=== PATIENT | female | born 1930 | race Caucasian/White ===

== ENCOUNTER 2018-10-16 09:52 | Emergency (ER) | payer MEDICARE, OTHER ==
[2018-10-16 10:47] LABS: #Basophils 0.1 thou/uL (0.0-0.2); #Eosinphils 0.1 thou/uL (0.0-0.7); #Lymphocytes 1.3 thou/uL (1.20-3.40); #Monocytes 0.6 thou/uL (0.11-0.59); #Neutrophils 4.4 thou/uL (1.40-6.50); %Basophils 0.8 % (0.0-1.0); %Eosinophils 1.3 % (0.0-10.0); %Lymphocytes 19.7 % (21.0-51.0); %Monocytes 9.9 % (0.0-10.0); %Neutrophils 68.3 % (42.0-75.0); Hemoglobin 14.8 g/dL (12.0-16.0); Mean Corpuscular HGB CONC 33.1 g/dL (32.0-36.0); Mean Corpuscular Hemoglobin 31.9 pg (27.0-31.0); Mean Corpuscular Volume 96.3 fL (78.0-98.0); Mean Platelet Volume 7.4 fL (7.4-10.4); Platelet Count 221 thou/uL (130-400); Red Blood Cell (RBC) Count 4.63 mill/uL (4.20-5.40); White Blood Cell (WBC) Count 6.5 thou/uL (4.8-10.8)
[2018-10-16 11:07] LABS: ALT (SGPT) 17 U/L (8-55); AST (SGOT) 24 U/L (5-34); Albumin 4.3 g/dL (3.4-4.8); Alkaline Phosphatase 73 U/L (40-150); Anion Gap 14 mmol/L (10-20); BUN (Urea Nitrogen) 13 mg/dL (9.8-20.1); Bilirubin, Total 0.5 mg/dL (0.2-1.2); CK (CPK) 140 U/L (29-168); Calc. Creatinine Clearance 0 mL/min (70-130); Calcium 9.4 mg/dL (7.8-10.44); Carbon Dioxide 27 mmol/L (23-31); Chloride 102 mmol/L (98-107); Estimated GFR-MDRD 69; Globulin 2.6 g/dL (2.4-3.5); Glucose 90 mg/dL (83-110); Potassium 4.5 mmol/L (3.5-5.1); Protein, Total 6.9 g/dL (6.0-8.3); Sodium 138 mmol/L (136-145)
[2018-10-16 11:31] LABS: Bilirubin Negative (Negative); Blood, Urine Negative (Negative); Clarity CLEAR (Clear); Glucose, Urine (Dipstick) Negative (Negative); Leukocyte Negative (Negative); Nitrite Negative (Negative); Protein, Urine (Dipstick) Negative (Neg-Trace); Specific Gravity, Urine 1.004 (1.002-1.036); Urobilinogen 0.2 mg/dL (0.2-1.0)
--- NOTE | 2018-10-16 11:43 | CT ---
NONCONTRAST CT HEAD: Date: 10-16-18 History: Worsening dizziness with onset one day ago. Comparison: 10-23-15 FINDINGS: There is decreased attenuation of the periventricular white matter which is nonspecific but likely se condary to chronic small vessel ischemic changes which have progressed from the prior study in 2016. There is no evidence of an acute cortical infarction, hemorrhage, mass effect, or midline shift. Ther e is mild cerebral volume loss. The ventricular system is normal in size, shape, and position for the degree of sulcal atrophy. Dense vascular calcifications are seen in the carotid siphons. Visualized paranasal sinuses and mastoid air cells are clear. Calvarial structures remain intact. No other interval change. IMPRESSION: 1. No acute intracranial abnormalities demonstrated. 2. Chronic small vessel ischemic changes. 3. Volume loss. POS: [facility]
== END 2018-10-16 12:23 | disposition home or self-care (01) ==
LOC: ERS 09:52
DX: R42 Dizziness and giddiness (principal); F32.9 Major depressive disorder, single episode, unspecified; I47.1 Supraventricular tachycardia; I10 Essential (primary) hypertension; Z87.891 Personal history of nicotine dependence; Z79.899 Other long term (current) drug therapy
CPT/HCPCS: 36415; 70450; 80053; 81003; 82550; 84484; 85025; 93005

== ENCOUNTER 2022-05-02 09:49 | Outpatient (CLI) | payer MEDICARE, OTHER | END 2022-05-02 09:50 | disposition home or self-care (01) | LOC: RAD 09:49 | PROVIDERS: ATTEND Internal Medicine Critical Care Medicine | DX: R06.00 Dyspnea, unspecified (principal); R91.8 Other nonspecific abnormal finding of lung field | CPT/HCPCS: 71046 ==

== ENCOUNTER 2022-05-27 12:09 | Inpatient (IN) | payer MEDICARE, OTHER ==
[2022-05-27 12:47] LABS: #Eosinphils 0.1 thou/uL (0.0-0.7); #Monocytes 0.7 thou/uL (0.11-0.59); #Neutrophils 5.5 thou/uL (1.40-6.50); %Eosinophils 1.3 % (0.0-10.0); %Lymphocytes 13.4 % (21.0-51.0); %Monocytes 9.2 % (0.0-10.0); %Neutrophils 76.1 % (42.0-75.0); Hemoglobin 12.8 g/dL (12.0-16.0); Mean Corpuscular HGB CONC 33.1 g/dL (32.0-36.0); Mean Corpuscular Hemoglobin 31.3 pg (27.0-31.0); Mean Corpuscular Volume 94.8 fL (78.0-98.0); Mean Platelet Volume 6.3 fL (7.4-10.4); Platelet Count 237 thou/uL (130-400); RBC Distribution Width 12.6 % (11.5-14.5); Red Blood Cell (RBC) Count 4.07 mill/uL (4.20-5.40); White Blood Cell (WBC) Count 7.3 thou/uL (4.8-10.8)
[2022-05-27 13:11] LABS: ALT (SGPT) 13 U/L (8-55); AST (SGOT) 19 U/L (5-34); Albumin 3.9 g/dL (3.4-4.8); Alkaline Phosphatase 58 U/L (40-110); Anion Gap 15 mmol/L (10-20); BUN (Urea Nitrogen) 28 mg/dL (9.8-20.1); Bilirubin, Total 0.7 mg/dL (0.2-1.2); Calc. Creatinine Clearance 0 mL/min (70-130); Carbon Dioxide 25 mmol/L (23-31); Chloride 96 mmol/L (98-107); Estimated GFR 37; Globulin 2.5 g/dL (2.4-3.5); Glucose 91 mg/dL (83-110); Potassium 4.5 mmol/L (3.5-5.1); Protein, Total 6.4 g/dL (5.8-8.1); Sodium 131 mmol/L (136-145)
[2022-05-27 13:48] LABS: SARS-CoV-2 NAA Rapid Test DETECTED (NotDetected)
[2022-05-27 13:49] LABS: Bilirubin Negative (Negative); Blood, Urine Negative (Negative); Clarity Clear (Clear); Glucose, Urine (Dipstick) >=1000 mg/dL (Negative); Ketone, Urine Negative (Negative); Leukocyte Negative Leu/uL (Negative); Nitrite Negative (Negative); Protein, Urine (Dipstick) 10 mg/dL (Neg-Trace); Urobilinogen Normal mg/dL (Less than 2); pH, Urine 6.5 (5.0-9.0)
[2022-05-27] MEDS ORDERED: Amlodipine 5 MG TAB ONE (14:28)
[2022-05-27] MEDS ORDERED: Aspirin Chewable 81 MG TAB ONE (14:28)
[2022-05-27] MEDS ORDERED: Furosemide 40 MG/4 ML VIAL ONE (14:28)
[2022-05-27] MEDS ORDERED: Nitroglycerin 2% Ointment 1 INCH/1 GM Packet ONE (14:28)
[2022-05-27] MEDS ORDERED: Ondansetron ODT 4 MG TAB PO PRN (15:12)
[2022-05-27] MEDS ORDERED: Acetaminophen 325 MG TAB PO PRN ×2 (15:12→15:17)
[2022-05-27] MEDS ORDERED: Ondansetron PF 4 MG/2 ML Vial IVP PRN (15:12)
[2022-05-27] MEDS ORDERED: hydrALAZINE 20 MG/ML VIAL SLOW IVP PRN (15:16)
[2022-05-27] MEDS ORDERED: Benzonatate 100 MG CAP PO PRN (15:17)
[2022-05-27] MEDS ORDERED: Acetaminophen 650 MG Suppository PR PRN (15:17)
[2022-05-27] MEDS ORDERED: Albuterol Sulfate 2.5 mg/3 ml Neb NEB PRN (15:19)
[2022-05-27] MEDS ORDERED: Electrolyte Replacement Protocol FS PRN (15:30)
[2022-05-27] MEDS: Mometasone 200 MCG/Formoterol 5 MCG 120 PUFF INHALER INH SCH (18:18)
[2022-05-27] MEDS: (RENAL) NIRMATRELVIR 150 MG/RITONAVIR 100 MG TABLET PO SCH (20:09)
[2022-05-27] MEDS: Latanoprost 0.005% Ophth Soln 2.5 ml Bottle EA EYE SCH (20:12)
[2022-05-28 05:31] LABS: Cardiac Risk 3.2 (Less than 4.5); Cholesterol 215 mg/dl (< 200 Desired); HDL Cholesterol 68 mg/dL (>60 Neg Risk); LDL Cholesterol, Calculated 131 mg/dL; Magnesium 1.8 mg/dL (1.6-2.6); Triglycerides 78 mg/dL (Less than 150)
[2022-05-28] MEDS: Mometasone 200 MCG/Formoterol 5 MCG 120 PUFF INHALER INH SCH ×2 (06:12→21:13)
[2022-05-28 07:55] LABS: Anion Gap 15 mmol/L (10-20); BUN (Urea Nitrogen) 31 mg/dL (9.8-20.1); Calc. Creatinine Clearance 21 mL/min (70-130); Calcium 8.6 mg/dL (7.8-10.44); Carbon Dioxide 26 mmol/L (23-31); Chloride 96 mmol/L (98-107); Estimated GFR 36; Glucose 78 mg/dL (83-110); Potassium 3.8 mmol/L (3.5-5.1); Sodium 133 mmol/L (136-145)
[2022-05-28] MEDS ORDERED: Magnesium 2 GM/50 ML(in water) 2 GM in Premix Bag 1 BAG IVPB SCH (08:00)
[2022-05-28] MEDS ORDERED: Enoxaparin Sodium 40 MG/0.4 ML SYRINGE SC SCH (09:00)
[2022-05-28] MEDS: Aspirin 81 mg Enteric Coated Tablet PO SCH (10:06)
[2022-05-28] MEDS: Ascorbic Acid 500 mg Chewable Tablet PO SCH (10:06)
[2022-05-28] MEDS: Zinc Sulfate 220 MG CAP PO SCH (10:07)
[2022-05-28] MEDS: Furosemide 40 MG/4 ML VIAL SLOW IVP SCH (10:07)
[2022-05-28] MEDS: Timolol 0.5% Ophth Soln 5 ml Bottle EA EYE SCH (10:08)
[2022-05-28] MEDS: Cholecalciferol (Vitamin D3) 400 UNITS TAB PO SCH (10:08)
[2022-05-28] MEDS: (RENAL) NIRMATRELVIR 150 MG/RITONAVIR 100 MG TABLET PO SCH ×2 (11:38→21:15)
[2022-05-28] MEDS: Fluticasone Propionate Nasal Spray 16 gm Bottle NASAL PRN (16:21)
[2022-05-28] MEDS: Latanoprost 0.005% Ophth Soln 2.5 ml Bottle EA EYE SCH (21:13)
[2022-05-29 05:58] LABS: ALT (SGPT) 10 U/L (8-55); AST (SGOT) 16 U/L (5-34); Albumin 3.4 g/dL (3.4-4.8); Alkaline Phosphatase 51 U/L (40-110); Anion Gap 14 mmol/L (10-20); BUN (Urea Nitrogen) 34 mg/dL (9.8-20.1); Bilirubin, Total 0.4 mg/dL (0.2-1.2); Calc. Creatinine Clearance 24 mL/min (70-130); Calcium 8.7 mg/dL (7.8-10.44); Carbon Dioxide 28 mmol/L (23-31); Chloride 95 mmol/L (98-107); Estimated GFR 41; Globulin 2.3 g/dL (2.4-3.5); Glucose 92 mg/dL (83-110); Magnesium 2.2 mg/dL (1.6-2.6); Potassium 3.5 mmol/L (3.5-5.1); Protein, Total 5.7 g/dL (5.8-8.1); Sodium 133 mmol/L (136-145)
[2022-05-29] MEDS: Mometasone 200 MCG/Formoterol 5 MCG 120 PUFF INHALER INH SCH ×2 (09:19→18:40)
[2022-05-29] MEDS: Fluticasone Propionate Nasal Spray 16 gm Bottle NASAL PRN (09:20)
[2022-05-29] MEDS: Ascorbic Acid 500 mg Chewable Tablet PO SCH (09:21)
[2022-05-29] MEDS: Enoxaparin Sodium 30 MG/0.3 ML SYRINGE SC SCH (09:22)
[2022-05-29] MEDS: Cholecalciferol (Vitamin D3) 400 UNITS TAB PO SCH (09:22)
[2022-05-29] MEDS: Zinc Sulfate 220 MG CAP PO SCH (09:22)
[2022-05-29] MEDS: Aspirin 81 mg Enteric Coated Tablet PO SCH (09:22)
[2022-05-29] MEDS: Furosemide 40 MG/4 ML VIAL SLOW IVP SCH (09:23)
[2022-05-29] MEDS: (RENAL) NIRMATRELVIR 150 MG/RITONAVIR 100 MG TABLET PO SCH ×2 (09:24→23:22)
[2022-05-29] MEDS: Timolol 0.5% Ophth Soln 5 ml Bottle EA EYE SCH (09:26)
[2022-05-29] MEDS ORDERED: Mirtazapine 15 MG TAB PO SCH (10:15)
[2022-05-29] MEDS ORDERED: Potassium Chloride 20 MEQ TAB PO SCH (13:45)
[2022-05-29 19:26] LABS: Potassium 4.3 mmol/L (3.5-5.1)
[2022-05-29] MEDS: Amlodipine 5 MG TAB PO SCH (23:21)
[2022-05-29] MEDS: Latanoprost 0.005% Ophth Soln 2.5 ml Bottle EA EYE SCH (23:22)
[2022-05-30] MEDS: Mometasone 200 MCG/Formoterol 5 MCG 120 PUFF INHALER INH SCH ×2 (06:09→17:14)
[2022-05-30] MEDS: Mirtazapine 15 MG TAB PO SCH (08:25)
[2022-05-30] MEDS: Enoxaparin Sodium 30 MG/0.3 ML SYRINGE SC SCH (08:25)
[2022-05-30] MEDS: Zinc Sulfate 220 MG CAP PO SCH (08:25)
[2022-05-30] MEDS: Ascorbic Acid 500 mg Chewable Tablet PO SCH (08:26)
[2022-05-30] MEDS: Aspirin 81 mg Enteric Coated Tablet PO SCH (08:26)
[2022-05-30] MEDS: Cholecalciferol (Vitamin D3) 400 UNITS TAB PO SCH (08:26)
[2022-05-30] MEDS: (RENAL) NIRMATRELVIR 150 MG/RITONAVIR 100 MG TABLET PO SCH ×2 (08:27→20:42)
[2022-05-30] MEDS: Furosemide 40 MG/4 ML VIAL SLOW IVP SCH (08:28)
[2022-05-30] MEDS: Dexamethasone 4 mg/ml Vial SLOW IVP SCH (09:46)
[2022-05-30] MEDS: Timolol 0.5% Ophth Soln 5 ml Bottle EA EYE SCH (09:46)
[2022-05-30 10:21] VITALS: BMI 16.9
[2022-05-30] MEDS: Lactated Ringer's 1,000 ML IV SCH (17:14)
[2022-05-30] MEDS: Amlodipine 5 MG TAB PO SCH (20:42)
[2022-05-30] MEDS: Latanoprost 0.005% Ophth Soln 2.5 ml Bottle EA EYE SCH (20:43)
[2022-05-31] MEDS: Lactated Ringer's 1,000 ML IV SCH (04:29)
[2022-05-31] MEDS: Mometasone 200 MCG/Formoterol 5 MCG 120 PUFF INHALER INH SCH ×2 (07:03→18:07)
[2022-05-31] MEDS: Ascorbic Acid 500 mg Chewable Tablet PO SCH (08:36)
[2022-05-31] MEDS: Cholecalciferol (Vitamin D3) 400 UNITS TAB PO SCH (08:36)
[2022-05-31] MEDS: Enoxaparin Sodium 30 MG/0.3 ML SYRINGE SC SCH (08:36)
[2022-05-31] MEDS: Mirtazapine 15 MG TAB PO SCH (08:37)
[2022-05-31] MEDS: Zinc Sulfate 220 MG CAP PO SCH (08:37)
[2022-05-31] MEDS: Aspirin 81 mg Enteric Coated Tablet PO SCH (08:38)
[2022-05-31] MEDS: Dexamethasone 4 mg/ml Vial SLOW IVP SCH (08:38)
[2022-05-31] MEDS: Timolol 0.5% Ophth Soln 5 ml Bottle EA EYE SCH (08:40)
[2022-05-31] MEDS: (RENAL) NIRMATRELVIR 150 MG/RITONAVIR 100 MG TABLET PO SCH (09:14)
[2022-05-31 16:11] VITALS: BP 144/74; TEMP 97.9
== END 2022-05-31 18:15 | disposition home or self-care (01) | DRG 177 ==
LOC: ERS 12:09 → NEURO 15:14 → OBSVTOIN 05-28 15:17
PROVIDERS: ADMIT Internal Medicine; ATTEND Hospitalist
PROC: 8E0ZXY6 Isolation (ICD-10-PCS; principal; 2022-05-28)
PROC: 3E0333Z Introduction of Anti-inflammatory into Peripheral Vein, Percutaneous Approach (ICD-10-PCS; 2022-05-30)
DX: U07.1 COVID-19 (principal); E43 Unspecified severe protein-calorie malnutrition; J12.82 Pneumonia due to coronavirus disease 2019; G93.41 Metabolic encephalopathy; J44.0 Chronic obstructive pulmonary disease with (acute) lower respiratory infection; N17.9 Acute kidney failure, unspecified; E87.1 Hypo-osmolality and hyponatremia; I50.32 Chronic diastolic (congestive) heart failure; Z68.1 Body mass index [BMI] 19.9 or less, adult; I11.0 Hypertensive heart disease with heart failure; Z66 Do not resuscitate; F32.A Depression, unspecified; Z79.899 Other long term (current) drug therapy; Z90.710 Acquired absence of both cervix and uterus; Z98.890 Other specified postprocedural states; Z90.49 Acquired absence of other specified parts of digestive tract
CPT/HCPCS: 36415; 36416; 70450; 70551; 71045; 80048; 80053; 80061; 81003; 83735; 83880; 84484; 85025; 86140; 87086; 93005; 93798; 94640; 96374; 97139; J1100; J1650; J1940; J3475; J7120; J7611; U0002

== ENCOUNTER 2022-09-24 17:07 | Inpatient (IN) | payer MEDICARE, OTHER ==
[2022-09-24] MEDS ORDERED: predniSONE 20 MG TAB ONE (17:40)
[2022-09-24] MEDS ORDERED: Magnesium 2 GM/50 ML BAG (IN WATER) ONE (17:40)
[2022-09-24] MEDS ORDERED: Furosemide 40 MG/4 ML VIAL ONE (17:40)
[2022-09-24] MEDS ORDERED: Nitroglycerin 2% Ointment 1 INCH/1 GM Packet ONE (17:40)
[2022-09-24 17:57] LABS: #Eosinphils 0.2 thou/uL (0.0-0.7); #Lymphocytes 1.2 thou/uL (1.20-3.40); #Monocytes 0.6 thou/uL (0.11-0.59); #Neutrophils 4.3 thou/uL (1.40-6.50); %Basophils 0.3 % (0.0-1.0); %Eosinophils 3.3 % (0.0-10.0); %Neutrophils 67.4 % (42.0-75.0); Hemoglobin 11.5 g/dL (12.0-16.0); Mean Corpuscular HGB CONC 32.8 g/dL (32.0-36.0); Mean Corpuscular Hemoglobin 31.4 pg (27.0-31.0); Mean Corpuscular Volume 95.7 fl (78.0-98.0); Mean Platelet Volume 7.2 fL (7.4-10.4); Platelet Count 220 10x3/uL (130-400); RBC Distribution Width 12.7 % (11.5-14.5); Red Blood Cell (RBC) Count 3.67 mill/uL (4.20-5.40); White Blood Cell (WBC) Count 6.4 10x3/uL (4.8-10.8)
[2022-09-24 18:26] LABS: ALT (SGPT) 14 U/L (8-55); AST (SGOT) 19 U/L (5-34); Alkaline Phosphatase 82 U/L (40-110); Anion Gap 12 mmol/L (10-20); BUN (Urea Nitrogen) 33 mg/dL (9.8-20.1); Bilirubin, Total 0.4 mg/dL (0.2-1.2); Calc. Creatinine Clearance 0 mL/min (70-130); Calcium 8.8 mg/dL (7.8-10.44); Carbon Dioxide 27 mmol/L (23-31); Chloride 105 mmol/L (98-107); Estimated GFR 27; Globulin 2.7 g/dL (2.4-3.5); Glucose 108 mg/dL (83-110); Potassium 4.6 mmol/L (3.5-5.1); Protein, Total 6.7 g/dL (5.8-8.1); Sodium 139 mmol/L (136-145)
[2022-09-24 18:44] LABS: CKMB 1.9 ng/mL (0-6.6)
[2022-09-24 19:32] LABS: SARS-CoV-2 NAA Rapid Test Not Detected (NotDetected)
[2022-09-24] MEDS ORDERED: Ondansetron PF 4 MG/2 ML Vial IVP PRN (22:03)
[2022-09-24] MEDS ORDERED: Acetaminophen 325 MG TAB PO PRN (22:03)
[2022-09-24] MEDS ORDERED: Ondansetron ODT 4 MG TAB PO PRN (22:03)
[2022-09-24] MEDS ORDERED: Acetaminophen 650 MG Suppository PR PRN (22:03)
[2022-09-24] MEDS ORDERED: hydrALAZINE 20 MG/ML VIAL SLOW IVP PRN (22:06)
[2022-09-24] MEDS ORDERED: HumaLOG 300 UNITS/3 ML VIAL SC PRN ×2 (22:09)
[2022-09-24] MEDS ORDERED: Dextrose 50% Abboject 50 ML SYRINGE SLOW IVP PRN (22:09)
[2022-09-24] MEDS ORDERED: Dextrose 5% in Water 1,000 ML IV PRN (22:09)
[2022-09-24] MEDS ORDERED: Lisinopril 20 MG TAB PO SCH (22:15)
[2022-09-24] MEDS ORDERED: Amlodipine 10 MG TAB PO SCH (22:15)
[2022-09-24] MEDS ORDERED: Amlodipine 5 MG TAB ONE (22:33)
[2022-09-24] MEDS ORDERED: Lisinopril 10 MG TAB ONE (22:33)
[2022-09-25 08:07] LABS: #Lymphocytes 0.6 thou/uL (1.20-3.40); #Monocytes 0.2 thou/uL (0.11-0.59); %Eosinophils 0.2 % (0.0-10.0); %Lymphocytes 12.3 % (21.0-51.0); %Monocytes 3.3 % (0.0-10.0); %Neutrophils 84.2 % (42.0-75.0); Hemoglobin 10.6 g/dL (12.0-16.0); Mean Corpuscular HGB CONC 32.8 g/dL (32.0-36.0); Mean Corpuscular Hemoglobin 31.3 pg (27.0-31.0); Mean Corpuscular Volume 95.4 fl (78.0-98.0); Mean Platelet Volume 7.6 fL (7.4-10.4); Platelet Count 219 10x3/uL (130-400); RBC Distribution Width 12.6 % (11.5-14.5); Red Blood Cell (RBC) Count 3.37 mill/uL (4.20-5.40); White Blood Cell (WBC) Count 4.7 10x3/uL (4.8-10.8)
[2022-09-25 08:31] LABS: Anion Gap 14 mmol/L (10-20); BUN (Urea Nitrogen) 34 mg/dL (9.8-20.1); Calc. Creatinine Clearance 0 mL/min (70-130); Calcium 8.8 mg/dL (7.8-10.44); Carbon Dioxide 27 mmol/L (23-31); Chloride 103 mmol/L (98-107); Estimated GFR 28; Glucose 129 mg/dL (83-110); Potassium 4.7 mmol/L (3.5-5.1); Sodium 139 mmol/L (136-145)
[2022-09-25] MEDS ORDERED: Lisinopril 10 MG TAB ONE (09:05)
[2022-09-25] MEDS ORDERED: Enoxaparin Sodium 30 MG/0.3 ML SYRINGE ONE (09:05)
[2022-09-25] MEDS ORDERED: Furosemide 40 MG/4 ML VIAL ONE (09:05)
[2022-09-25] MEDS ORDERED: methylPREDNISolone Sod Succ 40 MG VIAL ONE (09:05)
[2022-09-25] MEDS: Lisinopril 20 MG TAB PO SCH ×2 (09:13→20:20)
[2022-09-25] MEDS: Furosemide 40 MG/4 ML VIAL SLOW IVP SCH (09:19)
[2022-09-25] MEDS: methylPREDNISolone Sod Succ 40 MG VIAL IVP SCH (09:21)
[2022-09-25] MEDS: Enoxaparin Sodium 30 MG/0.3 ML SYRINGE SC SCH (09:22)
[2022-09-25 15:15] VITALS: BMI 18.6
[2022-09-25] MEDS ORDERED: Albuterol Sulfate 2.5 mg/3 ml Neb NEB PRN (17:59)
[2022-09-25] MEDS: Mometasone 100 MCG/PUFF (1 INHALER) INH SCH (19:28)
[2022-09-25] MEDS: Empagliflozin 10 MG TAB PO SCH (20:20)
[2022-09-25] MEDS: Amlodipine 10 MG TAB PO SCH (20:20)
[2022-09-25] MEDS: Latanoprost 0.005% Ophth Soln 2.5 ml Bottle EA EYE SCH (20:20)
[2022-09-25] MEDS: Timolol 0.5% Ophth Soln 5 ml Bottle EA EYE SCH (20:29)
[2022-09-26] MEDS: Mometasone 100 MCG/PUFF (1 INHALER) INH SCH ×2 (07:35→18:47)
[2022-09-26] MEDS ORDERED: Carvedilol 6.25 MG TAB PO SCH (08:00)
[2022-09-26] MEDS: Lisinopril 20 MG TAB PO SCH (09:50)
[2022-09-26] MEDS: Furosemide 40 MG/4 ML VIAL SLOW IVP SCH (09:50)
[2022-09-26] MEDS: Aspirin 81 mg Enteric Coated Tablet PO SCH (09:50)
[2022-09-26] MEDS: methylPREDNISolone Sod Succ 40 MG VIAL IVP SCH (09:50)
[2022-09-26] MEDS: Enoxaparin Sodium 30 MG/0.3 ML SYRINGE SC SCH (09:50)
[2022-09-26] MEDS ORDERED: hydrALAZINE 25 MG TAB PO SCH (15:00)
[2022-09-26] MEDS: Carvedilol 6.25 MG TAB PO SCH (17:42)
[2022-09-26 19:45] LABS: SARS-CoV-2 NAA Rapid Test Not Detected (NotDetected)
[2022-09-26] MEDS: Latanoprost 0.005% Ophth Soln 2.5 ml Bottle EA EYE SCH (21:50)
[2022-09-26] MEDS: Amlodipine 10 MG TAB PO SCH (21:51)
[2022-09-26] MEDS: Empagliflozin 10 MG TAB PO SCH (21:51)
[2022-09-26] MEDS: guaiFENesin ER 600 MG TAB PO SCH (21:51)
[2022-09-27 04:51] LABS: Iron 25 ug/dL (50-170); Iron Binding Capacity, Total 321 mcg/dL (265-497)
[2022-09-27 05:07] LABS: Ferritin 26.67 ng/mL (10-291)
[2022-09-27 05:08] LABS: Vitamin D, 25 Hydroxy 32.6 ng/ml (> 30.0)
[2022-09-27] MEDS: Mometasone 100 MCG/PUFF (1 INHALER) INH SCH ×2 (07:20→18:49)
[2022-09-27 09:48] LABS: Anion Gap 10 mmol/L (10-20); BUN (Urea Nitrogen) 44 mg/dL (9.8-20.1); Calc. Creatinine Clearance 23 mL/min (70-130); Calcium 8.4 mg/dL (7.8-10.44); Carbon Dioxide 30 mmol/L (23-31); Chloride 101 mmol/L (98-107); Estimated GFR 35; Glucose 89 mg/dL (83-110); Potassium 4.1 mmol/L (3.5-5.1); Sodium 137 mmol/L (136-145)
[2022-09-27] MEDS: Enoxaparin Sodium 30 MG/0.3 ML SYRINGE SC SCH (10:26)
[2022-09-27] MEDS: Aspirin 81 mg Enteric Coated Tablet PO SCH (10:26)
[2022-09-27] MEDS: guaiFENesin ER 600 MG TAB PO SCH ×2 (10:27→21:22)
[2022-09-27] MEDS: Carvedilol 6.25 MG TAB PO SCH ×2 (10:27→15:58)
[2022-09-27] MEDS: Furosemide 40 MG/4 ML VIAL SLOW IVP SCH (10:27)
[2022-09-27] MEDS: hydrALAZINE 25 MG TAB PO SCH ×3 (10:27→21:23)
[2022-09-27 14:54] LABS: Magnesium 2.1 mg/dL (1.6-2.6)
[2022-09-27] MEDS ORDERED: Sodium Chloride 0.65% Nasal 44 ML BOT EA NARE PRN (15:11)
[2022-09-27] MEDS: Amlodipine 10 MG TAB PO SCH (21:22)
[2022-09-27] MEDS: Latanoprost 0.005% Ophth Soln 2.5 ml Bottle EA EYE SCH (21:22)
[2022-09-27] MEDS: Empagliflozin 10 MG TAB PO SCH (21:23)
[2022-09-27] MEDS: Timolol 0.5% Ophth Soln 5 ml Bottle EA EYE SCH (21:24)
[2022-09-28 04:23] LABS: #Eosinphils 0.2 thou/uL (0.0-0.7); #Lymphocytes 1.2 thou/uL (1.20-3.40); %Basophils 0.2 % (0.0-1.0); %Eosinophils 2.6 % (0.0-10.0); %Monocytes 12.9 % (0.0-10.0); %Neutrophils 68.3 % (42.0-75.0); Hemoglobin 10.1 g/dL (12.0-16.0); Mean Corpuscular Hemoglobin 30.9 pg (27.0-31.0); Mean Corpuscular Volume 96.6 fl (78.0-98.0); Mean Platelet Volume 7.7 fL (7.4-10.4); Platelet Count 221 10x3/uL (130-400); RBC Distribution Width 12.3 % (11.5-14.5); Red Blood Cell (RBC) Count 3.26 mill/uL (4.20-5.40); White Blood Cell (WBC) Count 7.4 10x3/uL (4.8-10.8)
[2022-09-28 04:42] LABS: Anion Gap 12 mmol/L (10-20); BUN (Urea Nitrogen) 50 mg/dL (9.8-20.1); Calc. Creatinine Clearance 22 mL/min (70-130); Calcium 8.2 mg/dL (7.8-10.44); Carbon Dioxide 27 mmol/L (23-31); Chloride 101 mmol/L (98-107); Estimated GFR 34; Glucose 85 mg/dL (83-110); Potassium 4.2 mmol/L (3.5-5.1); Sodium 136 mmol/L (136-145)
[2022-09-28] MEDS: Mometasone 100 MCG/PUFF (1 INHALER) INH SCH ×2 (08:03→17:38)
[2022-09-28] MEDS: Furosemide 40 MG/4 ML VIAL SLOW IVP SCH (10:55)
[2022-09-28] MEDS: Aspirin 81 mg Enteric Coated Tablet PO SCH (10:55)
[2022-09-28] MEDS: Carvedilol 6.25 MG TAB PO SCH ×2 (10:55→16:41)
[2022-09-28] MEDS: hydrALAZINE 25 MG TAB PO SCH ×3 (10:56→22:53)
[2022-09-28] MEDS: guaiFENesin ER 600 MG TAB PO SCH ×2 (10:56→22:53)
[2022-09-28] MEDS: Enoxaparin Sodium 30 MG/0.3 ML SYRINGE SC SCH (10:56)
[2022-09-28] MEDS: Timolol 0.5% Ophth Soln 5 ml Bottle EA EYE SCH ×2 (21:55)
[2022-09-28] MEDS: Folic Acid/Vit B Comp W-C PO SCH (22:52)
[2022-09-28] MEDS: Amlodipine 10 MG TAB PO SCH (22:55)
[2022-09-28] MEDS: Empagliflozin 10 MG TAB PO SCH (22:56)
[2022-09-28] MEDS: Latanoprost 0.005% Ophth Soln 2.5 ml Bottle EA EYE SCH ×2 (23:07→23:16)
[2022-09-28] MEDS: Sodium Chloride 0.65% Nasal 44 ML BOT EA NARE SCH (23:08)
[2022-09-29 03:53] LABS: #Eosinphils 0.2 thou/uL (0.0-0.7); #Monocytes 0.8 thou/uL (0.11-0.59); #Neutrophils 5.8 thou/uL (1.40-6.50); %Basophils 0.5 % (0.0-1.0); %Eosinophils 2.7 % (0.0-10.0); %Lymphocytes 12.6 % (21.0-51.0); %Monocytes 10.4 % (0.0-10.0); %Neutrophils 73.8 % (42.0-75.0); Hemoglobin 10.6 g/dL (12.0-16.0); Mean Corpuscular HGB CONC 32.6 g/dL (32.0-36.0); Mean Corpuscular Hemoglobin 31.3 pg (27.0-31.0); Mean Corpuscular Volume 96.1 fl (78.0-98.0); Mean Platelet Volume 7.3 fL (7.4-10.4); Platelet Count 226 10x3/uL (130-400); RBC Distribution Width 12.4 % (11.5-14.5); Red Blood Cell (RBC) Count 3.37 mill/uL (4.20-5.40); White Blood Cell (WBC) Count 7.9 10x3/uL (4.8-10.8)
[2022-09-29 04:10] LABS: Anion Gap 12 mmol/L (10-20); BUN (Urea Nitrogen) 53 mg/dL (9.8-20.1); Calc. Creatinine Clearance 19 mL/min (70-130); Calcium 8.2 mg/dL (7.8-10.44); Carbon Dioxide 28 mmol/L (23-31); Chloride 100 mmol/L (98-107); Estimated GFR 27; Glucose 91 mg/dL (83-110); Potassium 4.1 mmol/L (3.5-5.1); Sodium 136 mmol/L (136-145)
[2022-09-29] MEDS: Enoxaparin Sodium 30 MG/0.3 ML SYRINGE SC SCH (10:26)
[2022-09-29] MEDS: Carvedilol 6.25 MG TAB PO SCH ×2 (10:26→16:23)
[2022-09-29] MEDS: Furosemide 40 MG/4 ML VIAL SLOW IVP SCH (10:26)
[2022-09-29] MEDS: Aspirin 81 mg Enteric Coated Tablet PO SCH (10:26)
[2022-09-29] MEDS: Mometasone 100 MCG/PUFF (1 INHALER) INH SCH ×2 (10:27→20:05)
[2022-09-29] MEDS: guaiFENesin ER 600 MG TAB PO SCH ×2 (10:27→21:20)
[2022-09-29] MEDS: hydrALAZINE 25 MG TAB PO SCH ×3 (10:27→21:20)
[2022-09-29] MEDS: Sodium Chloride 0.65% Nasal 44 ML BOT EA NARE SCH ×2 (10:38→16:24)
[2022-09-29] MEDS ORDERED: Melatonin 3 MG TAB PO PRN (19:26)
[2022-09-29] MEDS: Empagliflozin 10 MG TAB PO SCH (21:20)
[2022-09-29] MEDS: Folic Acid/Vit B Comp W-C PO SCH (21:20)
[2022-09-29] MEDS: Amlodipine 10 MG TAB PO SCH (21:20)
[2022-09-29] MEDS: Latanoprost 0.005% Ophth Soln 2.5 ml Bottle EA EYE SCH (21:22)
[2022-09-30] MEDS: Sodium Chloride 0.65% Nasal 44 ML BOT EA NARE SCH ×4 (00:30→20:57)
[2022-09-30] MEDS: Timolol 0.5% Ophth Soln 5 ml Bottle EA EYE SCH ×2 (01:41→23:06)
[2022-09-30 05:09] LABS: #Eosinphils 0.2 thou/uL (0.0-0.7); #Lymphocytes 0.9 thou/uL (1.20-3.40); #Monocytes 0.8 thou/uL (0.11-0.59); #Neutrophils 5.1 thou/uL (1.40-6.50); %Basophils 0.4 % (0.0-1.0); %Eosinophils 2.6 % (0.0-10.0); %Lymphocytes 12.9 % (21.0-51.0); %Monocytes 11.7 % (0.0-10.0); %Neutrophils 72.5 % (42.0-75.0); Hemoglobin 9.8 g/dL (12.0-16.0); Mean Corpuscular HGB CONC 32.3 g/dL (32.0-36.0); Mean Corpuscular Hemoglobin 31.1 pg (27.0-31.0); Mean Corpuscular Volume 96.4 fl (78.0-98.0); Mean Platelet Volume 7.5 fL (7.4-10.4); Platelet Count 207 10x3/uL (130-400); RBC Distribution Width 12.3 % (11.5-14.5); Red Blood Cell (RBC) Count 3.14 mill/uL (4.20-5.40)
[2022-09-30 05:36] LABS: Anion Gap 12 mmol/L (10-20); BUN (Urea Nitrogen) 60 mg/dL (9.8-20.1); Calc. Creatinine Clearance 16 mL/min (70-130); Calcium 8.1 mg/dL (7.8-10.44); Carbon Dioxide 27 mmol/L (23-31); Chloride 100 mmol/L (98-107); Estimated GFR 22; Glucose 91 mg/dL (83-110); Potassium 4.2 mmol/L (3.5-5.1); Sodium 135 mmol/L (136-145)
[2022-09-30] MEDS ORDERED: Furosemide 40 MG TAB PO SCH (07:30)
[2022-09-30] MEDS: Mometasone 100 MCG/PUFF (1 INHALER) INH SCH ×2 (07:44→19:36)
[2022-09-30] MEDS: Aspirin 81 mg Enteric Coated Tablet PO SCH (09:01)
[2022-09-30] MEDS: guaiFENesin ER 600 MG TAB PO SCH ×2 (09:01→20:59)
[2022-09-30] MEDS: Enoxaparin Sodium 30 MG/0.3 ML SYRINGE SC SCH (09:01)
[2022-09-30] MEDS: Carvedilol 6.25 MG TAB PO SCH ×3 (09:01→18:08)
[2022-09-30] MEDS: hydrALAZINE 25 MG TAB PO SCH ×3 (09:02→21:00)
[2022-09-30] MEDS: Latanoprost 0.005% Ophth Soln 2.5 ml Bottle EA EYE SCH (20:56)
[2022-09-30] MEDS: Melatonin 3 MG TAB PO SCH (20:58)
[2022-09-30] MEDS: Empagliflozin 10 MG TAB PO SCH (20:59)
[2022-09-30] MEDS ORDERED: Gabapentin 100 MG CAP PO SCH (21:00)
[2022-09-30] MEDS: Folic Acid/Vit B Comp W-C PO SCH (21:00)
[2022-09-30] MEDS: Amlodipine 10 MG TAB PO SCH (21:00)
[2022-09-30] MEDS: Senokot S 8.6-50 MG TAB PO SCH (21:01)
[2022-10-01 04:52] LABS: #Eosinphils 0.2 thou/uL (0.0-0.7); #Lymphocytes 0.8 thou/uL (1.20-3.40); #Monocytes 1.1 thou/uL (0.11-0.59); #Neutrophils 6.8 thou/uL (1.40-6.50); %Basophils 0.3 % (0.0-1.0); %Eosinophils 1.8 % (0.0-10.0); %Lymphocytes 8.7 % (21.0-51.0); %Monocytes 12.8 % (0.0-10.0); %Neutrophils 76.6 % (42.0-75.0); Mean Corpuscular HGB CONC 33.5 g/dL (32.0-36.0); Mean Corpuscular Hemoglobin 32.3 pg (27.0-31.0); Mean Corpuscular Volume 96.3 fl (78.0-98.0); Mean Platelet Volume 7.5 fL (7.4-10.4); Platelet Count 208 10x3/uL (130-400); RBC Distribution Width 12.3 % (11.5-14.5); Red Blood Cell (RBC) Count 3.11 mill/uL (4.20-5.40); White Blood Cell (WBC) Count 8.9 10x3/uL (4.8-10.8)
[2022-10-01 05:13] LABS: Phosphorus 5.3 mg/dL (2.3-4.7)
[2022-10-01 05:19] LABS: Anion Gap 14 mmol/L (10-20); BUN (Urea Nitrogen) 67 mg/dL (9.8-20.1); Calc. Creatinine Clearance 15 mL/min (70-130); Carbon Dioxide 25 mmol/L (23-31); Chloride 98 mmol/L (98-107); Estimated GFR 21; Glucose 92 mg/dL (83-110); Magnesium 2.4 mg/dL (1.6-2.6); Potassium 4.4 mmol/L (3.5-5.1); Sodium 133 mmol/L (136-145)
[2022-10-01] MEDS: Mometasone 100 MCG/PUFF (1 INHALER) INH SCH ×2 (07:46→19:14)
[2022-10-01] MEDS: Carvedilol 6.25 MG TAB PO SCH ×3 (09:12→17:19)
[2022-10-01] MEDS: guaiFENesin ER 600 MG TAB PO SCH ×2 (09:12→22:35)
[2022-10-01] MEDS: Senokot S 8.6-50 MG TAB PO SCH ×2 (09:12→22:36)
[2022-10-01] MEDS: hydrALAZINE 25 MG TAB PO SCH ×3 (09:12→22:36)
[2022-10-01] MEDS: Aspirin 81 mg Enteric Coated Tablet PO SCH (09:12)
[2022-10-01] MEDS: Sodium Chloride 0.65% Nasal 44 ML BOT EA NARE SCH ×3 (09:14→22:35)
[2022-10-01] MEDS: Timolol 0.5% Ophth Soln 5 ml Bottle EA EYE SCH ×2 (22:34→22:44)
[2022-10-01] MEDS: Latanoprost 0.005% Ophth Soln 2.5 ml Bottle EA EYE SCH (22:35)
[2022-10-01] MEDS: Amlodipine 10 MG TAB PO SCH (22:35)
[2022-10-01] MEDS: Melatonin 3 MG TAB PO SCH (22:35)
[2022-10-01] MEDS: Empagliflozin 10 MG TAB PO SCH (22:36)
[2022-10-01] MEDS: Folic Acid/Vit B Comp W-C PO SCH (22:36)
[2022-10-02 04:43] LABS: #Eosinphils 0.1 thou/uL (0.0-0.7); #Lymphocytes 0.7 thou/uL (1.20-3.40); #Monocytes 1.1 thou/uL (0.11-0.59); #Neutrophils 5.8 thou/uL (1.40-6.50); %Basophils 0.1 % (0.0-1.0); %Eosinophils 1.1 % (0.0-10.0); %Lymphocytes 9.4 % (21.0-51.0); %Monocytes 14.4 % (0.0-10.0); %Neutrophils 74.9 % (42.0-75.0); Hemoglobin 9.4 g/dL (12.0-16.0); Mean Corpuscular HGB CONC 32.1 g/dL (32.0-36.0); Mean Corpuscular Hemoglobin 30.5 pg (27.0-31.0); Mean Corpuscular Volume 95.2 fl (78.0-98.0); Mean Platelet Volume 7.9 fL (7.4-10.4); Platelet Count 186 10x3/uL (130-400); RBC Distribution Width 12.4 % (11.5-14.5); Red Blood Cell (RBC) Count 3.06 mill/uL (4.20-5.40); White Blood Cell (WBC) Count 7.7 10x3/uL (4.8-10.8)
[2022-10-02 05:16] LABS: Anion Gap 14 mmol/L (10-20); BUN (Urea Nitrogen) 78 mg/dL (9.8-20.1); Calc. Creatinine Clearance 11 mL/min (70-130); Calcium 7.9 mg/dL (7.8-10.44); Carbon Dioxide 25 mmol/L (23-31); Chloride 96 mmol/L (98-107); Estimated GFR 14; Glucose 96 mg/dL (83-110); Potassium 4.7 mmol/L (3.5-5.1); Sodium 130 mmol/L (136-145)
[2022-10-02] MEDS: Mometasone 100 MCG/PUFF (1 INHALER) INH SCH ×2 (07:10→19:00)
[2022-10-02] MEDS: Enoxaparin Sodium 30 MG/0.3 ML SYRINGE SC SCH (09:04)
[2022-10-02] MEDS: Carvedilol 6.25 MG TAB PO SCH ×2 (09:06→13:04)
[2022-10-02] MEDS: Senokot S 8.6-50 MG TAB PO SCH ×2 (09:07→20:49)
[2022-10-02] MEDS: guaiFENesin ER 600 MG TAB PO SCH ×2 (09:09→20:47)
[2022-10-02] MEDS: Aspirin 81 mg Enteric Coated Tablet PO SCH (09:09)
[2022-10-02] MEDS: hydrALAZINE 25 MG TAB PO SCH ×3 (09:10→20:48)
[2022-10-02] MEDS ORDERED: Lidocaine 1% (PF) 30 ML VIAL SC SCH (11:15)
[2022-10-02] MEDS: Sodium Chloride 0.65% Nasal 44 ML BOT EA NARE SCH ×3 (12:50→20:50)
[2022-10-02] MEDS ORDERED: predniSONE 20 MG TAB PO SCH (17:00)
[2022-10-02 20:30] VITALS: BP 124/60; TEMP 97.6
[2022-10-02] MEDS: Folic Acid/Vit B Comp W-C PO SCH (20:47)
[2022-10-02] MEDS: Melatonin 3 MG TAB PO SCH (20:49)
[2022-10-02] MEDS: Timolol 0.5% Ophth Soln 5 ml Bottle EA EYE SCH (20:50)
[2022-10-02] MEDS: Latanoprost 0.005% Ophth Soln 2.5 ml Bottle EA EYE SCH (20:50)
[2022-10-02] MEDS ORDERED: Amlodipine 5 MG TAB PO SCH (21:00)
[2022-10-02] MEDS ORDERED: Mirtazapine 15 MG TAB PO SCH (21:00)
[2022-10-03] MEDS ORDERED: busPIRone HCl 5 MG TAB PO SCH (09:00)
== END 2022-10-02 22:07 | DRG 280 ==
LOC: ERS 17:07 → ERHOLD 19:38 → 2NO 09-25 14:32
PROVIDERS: ADMIT Internal Medicine; ATTEND Internal Medicine
PROC: 0R9K3ZZ Drainage of Left Shoulder Joint, Percutaneous Approach (ICD-10-PCS; principal; 2022-10-02)
PROC: 3E0U33Z Introduction of Anti-inflammatory into Joints, Percutaneous Approach (ICD-10-PCS; 2022-10-02)
PROC: 3E0U3BZ Introduction of Anesthetic Agent into Joints, Percutaneous Approach (ICD-10-PCS; 2022-10-02)
DX: I13.2 Hypertensive heart and chronic kidney disease with heart failure and with stage 5 chronic kidney disease, or end stage renal disease (principal); I50.33 Acute on chronic diastolic (congestive) heart failure; I21.A1 Myocardial infarction type 2; Z66 Do not resuscitate; Z20.822 Contact with and (suspected) exposure to COVID-19; Z51.5 Encounter for palliative care; J96.01 Acute respiratory failure with hypoxia; N17.9 Acute kidney failure, unspecified; E87.1 Hypo-osmolality and hyponatremia; N25.81 Secondary hyperparathyroidism of renal origin; N18.5 Chronic kidney disease, stage 5; M19.012 Primary osteoarthritis, left shoulder; M25.412 Effusion, left shoulder; J44.9 Chronic obstructive pulmonary disease, unspecified; M81.0 Age-related osteoporosis without current pathological fracture; D53.9 Nutritional anemia, unspecified; H40.9 Unspecified glaucoma; M18.4 Other bilateral secondary osteoarthritis of first carpometacarpal joints; D63.1 Anemia in chronic kidney disease; Z79.899 Other long term (current) drug therapy; Z79.82 Long term (current) use of aspirin; Z79.52 Long term (current) use of systemic steroids; Z90.710 Acquired absence of both cervix and uterus; Z87.891 Personal history of nicotine dependence; Z98.890 Other specified postprocedural states
CPT/HCPCS: 36415; 36416; 71045; 76770; 80048; 80053; 82306; 82553; 82728; 83540; 83550; 83735; 83880; 83970; 84100; 84484; 85025; 87811; 93005; 93798; 94640; 96374; 96375; J1650; J1940; J2920; J3475; J7512; J7611; J7620